=== PATIENT | female | born 1960 | race Caucasian/White ===

== ENCOUNTER 2016-11-19 18:33 | Emergency (ER) | payer BC ==
[2016-11-19 18:38] VITALS: TEMP 97.9
--- NOTE | 2016-11-19 18:47 | CPEKG ---
Heart Rate: 162 RR Interval: 370 QRSD Interval: 80 QT Interval: 288 QTC Interval: 473 QRS [place]: 104 T Wave [place]: 17 EKG Severity - ABNORMAL ECG - EKG Impression: ATRIAL FIBRILLATION WITH RAPID V-RATE EKG Impression: PROBABLE ANTEROSEPTAL INFARCT, OLD Electronically Signed By: Gonzalo Reynoso 19-Nov-2016 20:36:39
[2016-11-19] MEDS ORDERED: PROPOFOL 200 MG/20 ML VIAL ONE ×2 (18:58→20:31)
--- NOTE | 2016-11-19 19:13 | EDPHY ---
H & P Time Seen by Provider: 11/19/16 19:11 HPI/ROS: Chief complaint. Atrial fibrillation HPI. 56-year-old female with long history of paroxysmal atrial fibrillation presents with atrial fibrillation that began at 12:30 p.m. this afternoon. She feels somewhat tired and weak. No chest discomfort or shortness of breath. Nothing unusual about this. 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 ROS Constitutional. Weakness Eyes. no problems with vision ENT. no sore throat, no nasal drainage Cardiovascular. no chest pain. Rapid heart rate Respiratory. no shortness of breath, no cough Abdominal. no abdominal pain, no nausea/vomiting, no diarrhea . no problems urinating MS. no calf pain/swelling, no neck/back pain, no joint pain Skin. no rash Lymph. no swollen glands Neuro. no headache, no dizziness, no difficulty walking or with speech Past Medical/Surgical History: Atrial fibrillation, cardioversion, ablation, orthopedic surgeries Social History: , nonsmoker, no alcohol Smoking Status: Never smoked Physical Exam: General Appearance: Alert well-developed female mild distress vital signs show heart rate 136 blood pressure 172/104 Eyes: Pupils equal and round no pallor or injection. ENT, Mouth: Mucous membranes are moist. Respiratory: There are no retractions, lungs are clear to auscultation. Cardiovascular: Irregularly irregular rate and rhythm Gastrointestinal: Abdomen is soft and nontender, no masses, bowel sounds normal. Neurological: Awake and alert, sensory and motor exams grossly normal. Skin: Warm and dry, no rashes. Musculoskeletal: Neck is supple nontender. Extremities symmetrical, full range of motion. Psychiatric: Patient is oriented X 3, there is no agitation. Constitutional: Initial Vital Signs Temperature (C) 36.6 C 11/19/16 18:34 Heart Rate 136 H 11/19/16 18:34 Respiratory Rate 18 11/19/16 18:34 Blood Pressure 172/104 H 11/19/16 18:34 O2 Sat (%) 94 11/19/16 18:34 O2 Delivery Mode Room Air Allergies/Adverse Reactions: ketamine Allergy (Verified 07/06/15 16:01) Home Medications: Medication Instructions Recorded Cholecalciferol (Vitamin D3) 4,000 unit PO BID 08/07/13 [Vitamin D3] ESOMEPRAZOLE MAG TRIHYDRATE 40 mg PO DAILY 08/07/13 [NEXIUM] Furosemide [Lasix 20 MG (RX)] 20 mg PO DAILY PRN 08/07/13 Magnesium Oxide [Magnesium Oxide 500 mg PO DAILY@18 08/07/13 500 mg] Multivitamins [Tab-A-[place]] 1 each PO DAILY 08/07/13 Niacin [Niacin 500 mg (OTC)] 500 mg PO HS 08/07/13 [place]-3 Fatty Acids/Fish Oil [Fish 3 each PO BID 08/07/13 Oil 1,000 mg Capsule] Thyroid [[place] Thyroid] 60 mg PO BID 08/07/13 Ubidecarenone [Co Q-10] 50 mg PO DAILY 08/07/13 metFORMIN HCL [Glucophage] 850 mg PO BIDMEAL 08/07/13 Herbals/Supplements -Info Only 1 each PO AD 08/14/13 Progesterone 03/10/14 Cartia Xt 07/06/15 Fluticasone Propionate [Flovent 250 mcg IH BID #1 disk.w.dev 07/06/15 Diskus] Eliquis 11/19/16 Medical Decision Making - Diagnostics EKG Interpretation: EKG interpreted by me shows atrial fibrillation with normal axis. QRS is normal there is diffuse mild T-wave flattening. Ventricular response is 162 Post conversion EKG interpreted by me shows normal sinus rhythm with a rate of 95 Procedures: IV normal saline, monitor ED Course/Re-evaluation: Procedure: Conscious sedation. Indication: Cardioversion I was asked by Dr. Su to perform procedural sedation The patient is an appropriate candidate to tolerate procedural sedation. The patient's vital signs and mental status are appropriate. The risks, benefits and alternatives of the sedation were discussed with the patient. The patient is ASA classification 2 . The patient's Mallampati airway score was 1 and the patient did meet the 3-3-2 airway measurements. A time out was completed. The patient was sedated with propofol 100 mg IV. The patient was monitored with continuous pulse oximetry, merchant police and end tidal CO2. There were no complications and no significant hypoxemia. I performed the sedation The total time I spent at the bedside during the procedural sedation was 20 minutes. The patient was examined after the procedural sedation and has returned to their pre-sedation baseline with normal vital signs and a normal examination. Patient recovers well without symptoms. She is stable and in sinus rhythm Patient and I discussed treatment plan including criteria for return importance of follow-up and further evaluation. They expressed understanding and agreement Differential Diagnosis: I considered acute coronary syndrome, electrolyte abnormalities. The patient has recurrent atrial fibrillation - Data Points Laboratory Results: Laboratory Results 11/19/16 18:50 11/19/16 18:50 11/19/16 18:50 WBC 9.57 H 10^3/uL (3.80-9.50) RBC 5.10 10^6/uL (4.18-5.33) Hgb 15.5 g/dL (12.6-16.3) Hct 45.0 % (38.0-47.0) MCV 88.2 fL (81.5-99.8) MCH 30.4 pg (27.9-34.1) MCHC 34.4 g/dL (32.4-36.7) RDW 12.8 % (11.5-15.2) Plt Count 345 10^3/uL (150-400) MPV 10.4 fL (8.7-11.7) Neut % (Auto) 44.0 % (39.3-74.2) Lymph % (Auto) 46.9 H % (15.0-45.0) [place] % (Auto) 5.9 % (4.5-13.0) Eos % (Auto) 2.7 % (0.6-7.6) Baso % (Auto) 0.4 % (0.3-1.7) Nucleat RBC Rel Count 0.0 % (0.0-0.2) Absolute Neuts (auto) 4.21 10^3/uL (1.70-6.50) Absolute Lymphs (auto) 4.49 H 10^3/uL (1.00-3.00) Absolute Monos (auto) 0.56 10^3/uL (0.30-0.80) Absolute Eos (auto) 0.26 10^3/uL (0.03-0.40) Absolute Basos (auto) 0.04 10^3/uL (0.02-0.10) Absolute Nucleated RBC 0.00 10^3/uL (0-0.01) Immature Gran % 0.1 % (0.0-1.1) Immature Gran # 0.01 10^3/uL (0.00-0.10) PT 12.1 SEC (12.0-15.0) INR 0.91 (0.83-1.16) APTT 28.2 SEC (23.0-38.0) Sodium 143 mEq/L (134-144) Potassium 4.2 mEq/L (3.5-5.2) Chloride 104 mEq/L (97-110) Carbon Dioxide 27 mEq/l (22-31) Anion Gap 12 mEq/L (8-16) BUN 13 mg/dL (7-23) Creatinine 0.6 mg/dL (0.6-1.0) Estimated GFR > 60 Glucose 100 mg/dL (70-100) Calcium 10.1 mg/dL (8.5-10.4) Troponin I < 0.012 ng/mL (0-0.034) Medications Given: Discontinued Medications Sodium Chloride (Ns) 1,000 mls @ 0 mls/hr IV ONCE ONE PRN Reason: Wide Open Stop: 11/19/16 19:23 Last Admin: 11/19/16 19:36 Dose: 1,000 mls Departure - Departure Disposition: Home, Routine, Self-Care Clinical Impression: Atrial fibrillation Qualifiers: Atrial fibrillation type: paroxysmal Qualifier Code: (I48.0) Paroxysmal atrial fibrillation Condition: Good Instructions: Atrial Fibrillation (ED) Additional Instructions: Continue regular medications. Return for worsening symptoms. Call Dr. Clark for further evaluation on Tuesday Referrals: Cristina So [Primary Care Provider] - As per Instructions Jv Clark MD [Medical Doctor] - 2-3 days without fail
[2016-11-19 19:20] VITALS: RESP 16
[2016-11-19 19:21] LABS: % IMMATURE GRANULYOCYTES 0.1 % (0.0-1.1); ABSOLUTE IMMATURE GRANULOCYTES 0.01 10^3/uL (0.00-0.10); ADD DIFF? NO; ADD MORPH? NO; ADD SCAN? NO; ATYPICAL LYMPHOCYTE FLAG 0 (0-99); FRAGMENT RBC FLAG 20 (0-99); HEMOGLOBIN 15.5 g/dL (12.6-16.3); LEFT SHIFT FLG 0 (0-99); LIPEMIA HEMOLYSIS FLAG 90 (0-99); MEAN CELL HEMOGLOBIN 30.4 pg (27.9-34.1); MEAN CELL HEMOGLOBIN CONCENTR. 34.4 g/dL (32.4-36.7); MEAN CELL VOLUME 88.2 fL (81.5-99.8); MEAN PLATELET VOLUME 10.4 fL (8.7-11.7); PLATELET CLUMPS FLAG 20 (0-99); PLATELET COUNT 345 10^3/uL (150-400); RED CELL DISTRIBUTION WIDTH 12.8 % (11.5-15.2)
[2016-11-19] MEDS ORDERED: NS 1,000 ML IV ONE (19:22)
[2016-11-19 19:27] LABS: INR 0.91 (0.83-1.16); PROTIME(PATIENT) 12.1 SEC (12.0-15.0)
[2016-11-19 19:28] LABS: APTT 28.2 SEC (23.0-38.0)
[2016-11-19 19:31] LABS: ANION GAP 12 mEq/L (8-16); CALCIUM 10.1 mg/dL (8.5-10.4); CARBON DIOXIDE 27 mEq/l (22-31); CHLORIDE 104 mEq/L (97-110); CREATININE 0.6 mg/dL (0.6-1.0); GLOMERULAR FILTRATION RATE > 60; GLUCOSE 100 mg/dL (70-100); POTASSIUM 4.2 mEq/L (3.5-5.2); SODIUM 143 mEq/L (134-144)
[2016-11-19 19:41] LABS: TROPONIN I < 0.012 ng/mL (0-0.034)
[2016-11-19] MEDS ORDERED: PROPOFOL 200 MG/20 ML VIAL IVP ONE (20:42)
--- NOTE | 2016-11-19 21:01 | CPEKG ---
Heart Rate: 95 RR Interval: 632 P-R Interval: 160 QRSD Interval: 90 QT Interval: 364 QTC Interval: 458 P [place]: 44 QRS [place]: 26 T Wave [place]: 43 EKG Severity - BORDERLINE ECG - EKG Impression: SINUS RHYTHM EKG Impression: BORDERLINE T ABNORMALITIES, ANT-LAT LEADS Electronically Signed By: Gonzalo Reynoso 19-Nov-2016 21:29:17
[2016-11-19 21:39] VITALS: BP 117/85; PULSE 92; O2SAT 96
--- NOTE | 2016-11-20 05:24 | CPR ---
[f rep st] NONINVASIVE CARDIAC PROCEDURE REPORT PROCEDURE PERFORMED: Cardioversion. INDICATION FOR PROCEDURE: The patient is a 56-year-old female, with a long history of paroxysmal atr ial fibrillation. She has undergone 2 prior radiofrequency ablation procedures. However, she contin ues to experience episodes of paroxysmal atrial fibrillation occurring every several months. She has had multiple cardioversions in the past. She typically never makes it through a full calendar year without a recurrent episode of atrial fibrillation. When she does develop atrial fibrillation she te nds to get "stuck" in it and requires a cardioversion to restore normal sinus rhythm. She is followe d in the office by Dr. Clark. She developed recurrent atrial fibrillation between noon and 1 p.m. tomaral y. She contacted our office and was instructed to proceed to the emergency room to undergo cardiover sera. DESCRIPTION OF PROCEDURE: The patient received intravenous propofol for sedation, supervised by Dr. Gonzalo Reynoso from the emergency room. A single, synchronized 100 joule shock was successful in ping ring normal sinus rhythm. CONCLUSIONS: Successful cardioversion from atrial fibrillation to normal sinus rhythm. PLAN: The patient will be discharged shortly from the emergency room. I will send notification to t [place] office of [facility] to contact the patient for followup with Dr. Clark, in the near future. /[id number]/MODL
== END 2016-11-19 21:38 | disposition home or self-care (01) ==
DX: I48.0 Paroxysmal atrial fibrillation (principal)
CPT/HCPCS: J2704

== ENCOUNTER 2017-01-21 10:47 | Day surgery (SDC) | payer BC ==
[2017-01-21] MEDS ORDERED: NS 500 ML IV ONE (11:20)
[2017-01-21] MEDS ORDERED: PROPOFOL 200 MG/20 ML VIAL IVP ONE (11:20)
[2017-01-21] MEDS ORDERED: fentaNYL 100 MCG/2 ML INJ IVP ONE (11:20)
[2017-01-21] MEDS ORDERED: ETOMIDATE 20 MG/10 ML VIAL IVP ONE (11:20)
[2017-01-21] MEDS ORDERED: MIDAZOLAM 2 MG/2 ML VIAL IVP ONE (11:20)
[2017-01-21 11:49] LABS: INR 1.01 (0.83-1.16); PROTIME(PATIENT) 13.2 SEC (12.0-15.0)
[2017-01-21 11:50] LABS: APTT 28.8 SEC (23.0-38.0)
[2017-01-21 12:54] LABS: ANION GAP 14 mEq/L (8-16); CALCIUM 9.9 mg/dL (8.5-10.4); CARBON DIOXIDE 24 mEq/l (22-31); CHLORIDE 107 mEq/L (97-110); CREATININE 0.6 mg/dL (0.6-1.0); GLOMERULAR FILTRATION RATE > 60; GLUCOSE 104 mg/dL (70-100); MAGNESIUM 2.2 mg/dL (1.6-2.3); SODIUM 145 mEq/L (134-144)
--- NOTE | 2017-01-21 13:33 | EPPROC ---
Electrophysiology Procedure Note: Procedure: CV Indication: Symptomatic AF Procedure: Pt sedated by anesthesia staff. 200J of DCCV given, after the first one the pt returned in AF. Patch position changed. CV repeated. This time the pt converted to SR Conclusion: Successful CV Patient Problems: Problems Problem Status Onset Atrial fibrillation Acute Primary osteoarthritis of one knee Acute
== END 2017-01-21 13:32 | disposition home or self-care (01) ==
LOC: FCATH 10:47
PROVIDERS: ATTEND Internal Medicine Cardiovascular Disease
PROC: 5A2204Z Restoration of Cardiac Rhythm, Single (ICD-10-PCS; principal; 2017-01-21)
DX: I48.91 Unspecified atrial fibrillation (principal); Z79.01 Long term (current) use of anticoagulants
CPT/HCPCS: J2704

== ENCOUNTER → 2017-03-22 | Outpatient (CLI) | payer BC | LOC: FIMAGING 14:31 | DX: Z12.31 Encounter for screening mammogram for malignant neoplasm of breast (principal) | CPT/HCPCS: G0202 ==

== ENCOUNTER 2017-06-03 10:51 | Day surgery (SDC) | payer BC ==
[2017-06-03] MEDS ORDERED: fentaNYL 100 MCG/2 ML INJ IVP ONE (10:56)
[2017-06-03] MEDS ORDERED: MIDAZOLAM 2 MG/2 ML VIAL IVP ONE (10:56)
[2017-06-03] MEDS ORDERED: BENZOCAINE UNIT DOSE SPRAY HURRICAINE MM ONE (10:56)
[2017-06-03] MEDS ORDERED: NS 500 ML IV ONE (10:56)
[2017-06-03] MEDS ORDERED: PROPOFOL 200 MG/20 ML VIAL IVP ONE (10:56)
--- NOTE | 2017-06-03 11:17 | CPEKG ---
Heart Rate: 162 RR Interval: 370 QRSD Interval: 80 QT Interval: 292 QTC Interval: 480 QRS [place]: 93 T Wave [place]: 17 EKG Severity - ABNORMAL ECG - EKG Impression: ATRIAL FIBRILLATION WITH RAPID V-RATE EKG Impression: PROBABLE ANTEROSEPTAL INFARCT, OLD EKG Impression: BORDERLINE T ABNORMALITIES, ANTERIOR LEADS EKG Impression: ATRIAL FIB IS NEW IN COMPARISON TO PRIOR Electronically Signed By: Maninder Garcia 03-Jun-2017 14:11:23
[2017-06-03] MEDS ORDERED: ATROPINE SULFATE 1 MG/10 ML SYR ONE (11:30)
[2017-06-03 11:44] LABS: INR 1.01 (0.83-1.16); PROTIME(PATIENT) 13.2 SEC (12.0-15.0)
[2017-06-03 11:45] LABS: APTT 27.8 SEC (23.0-38.0)
[2017-06-03 12:01] LABS: ANION GAP 13 mEq/L (8-16); CARBON DIOXIDE 23 mEq/l (22-31); CHLORIDE 109 mEq/L (97-110); CREATININE 0.7 mg/dL (0.6-1.0); GLOMERULAR FILTRATION RATE > 60; GLUCOSE 103 mg/dL (70-100); MAGNESIUM 2.2 mg/dL (1.6-2.3); SODIUM 145 mEq/L (134-144)
--- NOTE | 2017-06-03 12:43 | CPEKG ---
Heart Rate: 95 RR Interval: 632 P-R Interval: 160 QRSD Interval: 88 QT Interval: 360 QTC Interval: 453 P [place]: 41 QRS [place]: -38 T Wave [place]: 29 EKG Severity - BORDERLINE ECG - EKG Impression: SINUS RHYTHM EKG Impression: LEFT AXIS DEVIATION EKG Impression: BORDERLINE T ABNORMALITIES, ANTERIOR LEADS EKG Impression: SINUS RHYTHM HAS REPLACED AFIB FROM PRIOR ECG Electronically Signed By: Maninder Garcia 03-Jun-2017 14:11:56
--- NOTE | 2017-06-03 16:54 | EPPROC ---
Electrophysiology Procedure Note: Procedure: DCCV Indication: AF Procedure: Pt sedated by anesthesiologist. Once sedated, pt underwent synchronized DCCV at 200J. Pt converted to SR. Conclusion: Successful CV Patient Problems: Problems Problem Status Onset Atrial fibrillation Acute Primary osteoarthritis of one knee Acute
== END 2017-06-03 13:51 | disposition home or self-care (01) ==
LOC: FCATH 10:51
PROVIDERS: ATTEND Internal Medicine Cardiovascular Disease
PROC: 5A2204Z Restoration of Cardiac Rhythm, Single (ICD-10-PCS; principal; 2017-06-03)
DX: I48.91 Unspecified atrial fibrillation (principal)
CPT/HCPCS: J0461; J2704

== ENCOUNTER 2017-06-24 10:29 | Day surgery (SDC) | payer BC ==
[2017-06-24] MEDS ORDERED: MIDAZOLAM 2 MG/2 ML VIAL IVP ONE (10:33)
[2017-06-24] MEDS ORDERED: PROPOFOL 200 MG/20 ML VIAL IVP ONE (10:33)
[2017-06-24] MEDS ORDERED: NS 500 ML IV ONE (10:33)
[2017-06-24] MEDS ORDERED: fentaNYL 100 MCG/2 ML INJ IVP ONE (10:33)
--- NOTE | 2017-06-24 10:45 | CPEKG ---
Heart Rate: 157 RR Interval: 382 QRSD Interval: 82 QT Interval: 280 QTC Interval: 453 QRS [place]: 117 T Wave [place]: 16 EKG Severity - ABNORMAL ECG - EKG Impression: ATRIAL FIBRILLATION WITH RAPID V-RATE Electronically Signed By: Asif Grijalva 27-Jun-2017 05:28:37
[2017-06-24 11:08] LABS: INR 1.04 (0.83-1.16); PROTIME(PATIENT) 13.5 SEC (12.0-15.0)
[2017-06-24 11:09] LABS: APTT 28.8 SEC (23.0-38.0)
[2017-06-24 11:18] LABS: ANION GAP 16 mEq/L (8-16); CARBON DIOXIDE 24 mEq/l (22-31); CHLORIDE 104 mEq/L (97-110); CREATININE 0.7 mg/dL (0.6-1.0); GLOMERULAR FILTRATION RATE > 60; GLUCOSE 113 mg/dL (70-100); MAGNESIUM 2.1 mg/dL (1.6-2.3); SODIUM 144 mEq/L (134-144)
[2017-06-24] MEDS ORDERED: ATROPINE SULFATE 1 MG/10 ML SYR ONE (12:00)
[2017-06-24] MEDS ORDERED: PROPOFOL 200 MG/20 ML VIAL ONE (12:02)
--- NOTE | 2017-06-24 12:27 | CPEKG ---
Heart Rate: 89 RR Interval: 674 P-R Interval: 160 QRSD Interval: 96 QT Interval: 360 QTC Interval: 439 P [place]: 45 QRS [place]: -21 T Wave [place]: 13 EKG Severity - BORDERLINE ECG - EKG Impression: SINUS RHYTHM EKG Impression: LEFT AXIS DEVIATION EKG Impression: NON-SPECIFIC ST DEPRESSION ANTERIOR-LATERALLY Electronically Signed By: Asif Grijalva 27-Jun-2017 05:28:19
--- NOTE | 2017-06-24 18:13 | EPPROC ---
Electrophysiology Procedure Note: Procedure: DCCV Indication: Symptomatic AF Procedure: Pt sedated by anesthesiology staff. Once sedated, pt underwent 200J of synchronized DCCV. Successful conversion to SR. Conclusion: Successful CV Patient Problems: Problems Problem Status Onset Atrial fibrillation Acute Primary osteoarthritis of one knee Acute
== END 2017-06-24 13:03 | disposition home or self-care (01) ==
LOC: FCATH 10:29
PROVIDERS: ATTEND Internal Medicine Cardiovascular Disease
PROC: 5A2204Z Restoration of Cardiac Rhythm, Single (ICD-10-PCS; principal; 2017-06-24)
DX: I48.91 Unspecified atrial fibrillation (principal); E03.9 Hypothyroidism, unspecified; E11.9 Type 2 diabetes mellitus without complications
CPT/HCPCS: J0461; J2704

== ENCOUNTER → 2018-03-29 | Outpatient (CLI) | payer BC | LOC: CIMAGING 07:06 | PROVIDERS: ATTEND Obstetrics & Gynecology Gynecology | DX: Z12.31 Encounter for screening mammogram for malignant neoplasm of breast (principal) ==

== ENCOUNTER 2018-05-03 09:31 | Day surgery (SDC) | payer BC ==
[2018-05-03] MEDS ORDERED: NS 500 ML IV ONE (09:34)
[2018-05-03] MEDS ORDERED: ATROPINE SULFATE 1 MG/10 ML SYR IVP ONE (09:34)
[2018-05-03] MEDS ORDERED: fentaNYL 100 MCG/2 ML INJ IVP ONE (09:34)
[2018-05-03] MEDS ORDERED: MIDAZOLAM 2 MG/2 ML VIAL IVP ONE (09:34)
--- NOTE | 2018-05-03 09:51 | CPEKG ---
Heart Rate: 158 RR Interval: 380 QRSD Interval: 82 QT Interval: 288 QTC Interval: 467 QRS [place]: 127 T Wave [place]: 17 EKG Severity - ABNORMAL ECG - EKG Impression: ATRIAL FIBRILLATION EKG Impression: LEFT POSTERIOR FASCICULAR BLOCK EKG Impression: PROBABLE ANTEROSEPTAL INFARCT, OLD EKG Impression: REPOLARIZATION ABNORMALITY, PROB RATE RELATED Electronically Signed By: Jv Clark 03-May-2018 11:00:56
[2018-05-03 10:17] LABS: INR 1.05 (0.83-1.16); PROTIME(PATIENT) 13.9 SEC (12.0-15.0)
--- NOTE | 2018-05-03 10:56 | PDGENHP ---
History & Physical Chief Complaint: symptomatic AFIB Relevant Physical Exam: s1s2 irreg. cta. ao3 Cardiorespiratory Assessment: Symptomatic AFIB. Plan cardioversion
[2018-05-03] MEDS ORDERED: PROPOFOL 200 MG/20 ML VIAL ONE (11:07)
--- NOTE | 2018-05-03 11:29 | CPEKG ---
Heart Rate: 82 RR Interval: 732 P-R Interval: 164 QRSD Interval: 92 QT Interval: 380 QTC Interval: 444 P [place]: 11 QRS [place]: 3 T Wave [place]: 25 EKG Severity - ABNORMAL ECG - EKG Impression: SINUS RHYTHM EKG Impression: PROBABLE ANTEROSEPTAL INFARCT, AGE INDETERM Electronically Signed By: Jv Clark 03-May-2018 16:35:30
[2018-05-03] MEDS ORDERED: NALOXONE HCL 0.4 MG/ML INJ IVP PRN (11:40)
--- NOTE | 2018-05-03 11:40 | PDANEPAE ---
ANE Past Medical History - Pulmonary History Hx Oxygen in Use at Home: No Hx Sleep Apnea: No - Endocrine History Hx Diabetes: No ANE Review of Systems Review of Systems: ANE Patient History - Allergies Allergies/Adverse Reactions: ketamine Allergy (Verified 07/06/15 16:01) - Home Medications Home Medications: Cholecalciferol (Vitamin D3) [Vitamin D3] 4,000 unit PO BID 08/07/13 [Last Taken 05/03/18] Furosemide [Lasix 20 MG (RX)] 20 mg PO DAILY PRN 08/07/13 [Last Taken 05/02/18] Multivitamins [Tab-A-[place]] 1 each PO DAILY 08/07/13 [Last Taken 05/02/18] Niacin [Niacin 500 mg (OTC)] 500 mg PO HS 08/07/13 [Last Taken 05/02/18] [place]-3 Fatty Acids/Fish Oil [Fish Oil 1,000 mg Capsule] 3 each PO BID 08/07/13 [Last Taken 08/28/13] Thyroid [[place] Thyroid] 60 mg PO BID 08/07/13 [Last Taken 05/02/18] Ubidecarenone [Co Q-10] 50 mg PO DAILY 08/07/13 [Last Taken 05/02/18] metFORMIN HCL [Glucophage] 1,000 mg PO BIDMEAL 08/07/13 [Last Taken 05/02/18] Progesterone 03/10/14 [Last Taken 05/02/18] Eliquis 5 mg PO BID 11/19/16 [Last Taken 05/03/18] Diltiazem HCl [Cartia XT 180mg] 05/03/18 [Last Taken 05/03/18] Rythmol Sr 225mg (*) 05/03/18 [Last Taken 05/03/18] - Smoking Hx Smoking Status: Never smoked ANE Labs/Vital Signs - Labs Result Diagrams: 05/03/18 09:48 - Vital Signs Height: 177.8 cm Weight: 86.636 kg ANE Physical Exam - Airway Neck exam: FROM Mallampati Score: Class 1 Mouth exam: normal dental/mouth exam - Pulmonary Pulmonary: no respiratory distress, no rales or rhonchi, clear to auscultation - Cardiovascular Cardiovascular: irregularly irregular - ASA Status ASA Status: III ANE Anesthesia Plan Anesthesia Plan: GA with mask
--- NOTE | 2018-05-03 11:41 | POSTANESTH ---
Post Anesthetic Evaluation Cardiovascular Status: Normal, Stable Respiratory Status: Normal, Stable, Similar to Pre-op Cond. Level of Consciousness/Mental Status: Can Participate in Eval Pain Control: Adequate, Prn Tx Ordered Nausea/Vomiting Control: Adequate, Prn Tx Ordered Complications Possibly Related to Anesthesia: None Noted
--- NOTE | 2018-05-03 20:15 | PDCARD ---
Cardioversion Procedure Procedure: electrical cardioversion Indications: atrial fibrillation Consent: signed and in chart Anticoagulation: eliquis Procedural Details: Pads were placed in anterior-posterior position. Synchronized cardioversion attempt #1: 200J (Sinus rhythm post CV. Patient asked to continue Eliquis chcf.) Patient Problems: Problems Problem Status Onset Primary osteoarthritis of one knee Acute Atrial fibrillation Acute
== END 2018-05-03 17:19 | disposition home or self-care (01) ==
LOC: FCATH 09:31
PROVIDERS: ATTEND Internal Medicine Cardiovascular Disease
PROC: 5A2204Z Restoration of Cardiac Rhythm, Single (ICD-10-PCS; principal; 2018-05-03)
DX: I48.91 Unspecified atrial fibrillation (principal); Z79.01 Long term (current) use of anticoagulants
CPT/HCPCS: J0461; J2704

== ENCOUNTER 2019-04-03 10:44 | Day surgery (SDC) | payer BC ==
[2019-04-03] MEDS ORDERED: ATROPINE SULFATE 1 MG/10 ML SYR IVP ONE (10:45)
[2019-04-03] MEDS ORDERED: NS 500 ML IV ONE (10:45)
[2019-04-03] MEDS ORDERED: BENZOCAINE UNIT DOSE SPRAY HURRICAINE MM ONE (10:45)
[2019-04-03] MEDS ORDERED: MIDAZOLAM 2 MG/2 ML VIAL IVP ONE (10:45)
[2019-04-03] MEDS ORDERED: fentaNYL 100 MCG/2 ML INJ IVP ONE (10:45)
[2019-04-03 11:31] LABS: INR 1.09 (0.83-1.16); PROTIME(PATIENT) 13.7 SEC (12.0-15.0)
--- NOTE | 2019-04-03 12:45 | PDGENHP ---
History & Physical Chief Complaint: Atrial fibrillation History of Present Illness: Symptomatic atrial fibrillation Relevant Physical Exam: A&Ox4, no apparent distress, irregularly irregular, S1, S2 Cardiorespiratory Assessment: Proceed with ROSANA-guided DCCV as planned for today (1 recent missed dose of Eliquis).
--- NOTE | 2019-04-03 12:48 | PDANEPAE ---
ANE History of Present Illness juan/cv ANE Past Medical History - Cardiovascular History Hx Hypertension: Yes Hx Arrhythmias: Yes Hx Chest Pain: No Hx Coronary Artery / Peripheral Vascular Disease: No Hx CHF / Valvular Disease: No Hx Palpitations: No - Pulmonary History Hx COPD: No Hx Asthma/Reactive Airway Disease: No Hx Recent Upper Respiratory Infection: No Hx Oxygen in Use at Home: No Hx Sleep Apnea: No - Neurologic History Hx Cerebrovascular Accident: No Hx Seizures: No Hx Dementia: No - Endocrine History Hx Diabetes: No Hypothyroid: No Hyperthyroid: No Obesity: mild - Renal History Hx Renal Disorders: No - Liver History Hx Hepatic Disorders: No - GI History GERD: mild GERD Comment: controlled with nexium ANE Review of Systems Review of Systems: - Exercise capacity Exercise capacity: >=4 METS ANE Patient History - Allergies Allergies/Adverse Reactions: ketamine Allergy (Verified 07/06/15 16:01) - Home Medications Home medications: home medication list seen and reviewed Home Medications: Cholecalciferol (Vitamin D3) [Vitamin D3] 4,000 unit PO BID 08/07/13 [Last Taken 05/03/18] Furosemide [Lasix 20 MG (RX)] 20 mg PO DAILY PRN 08/07/13 [Last Taken 05/02/18] Multivitamins [Tab-A-[place]] 1 each PO DAILY 08/07/13 [Last Taken 05/02/18] Niacin [Niacin 500 mg (OTC)] 500 mg PO HS 08/07/13 [Last Taken 05/02/18] [place]-3 Fatty Acids/Fish Oil [Fish Oil 1,000 mg Capsule] 3 each PO BID 08/07/13 [Last Taken 08/28/13] Thyroid [[place] Thyroid] 60 mg PO BID 08/07/13 [Last Taken 05/02/18] Ubidecarenone [Co Q-10] 50 mg PO DAILY 08/07/13 [Last Taken 05/02/18] metFORMIN HCL [Glucophage] 1,000 mg PO BIDMEAL 08/07/13 [Last Taken 05/02/18] Progesterone 03/10/14 [Last Taken 05/02/18] Eliquis 5 mg PO BID 11/19/16 [Last Taken 05/03/18] Diltiazem HCl [Cartia XT 180mg] 05/03/18 [Last Taken 06/20/18] Rythmol Sr 225mg (*) 05/03/18 [Last Taken 05/03/18] - NPO status NPO Status: no food or drink >8 hours - Anes Hx Anes Hx: no prior problems - Smoking Hx Smoking Status: Never smoked ANE Labs/Vital Signs - Labs Result Diagrams: 04/03/19 11:10 ANE Physical Exam - Airway Mallampati Score: Class 2 Mouth exam: normal dental/mouth exam - Pulmonary Pulmonary: no respiratory distress - Cardiovascular Cardiovascular: regular rate and rhythym - ASA Status ASA Status: II ANE Anesthesia Plan Anesthesia Plan: GA with mask
[2019-04-03] MEDS ORDERED: PROPOFOL 200 MG/20 ML VIAL ONE (12:49)
[2019-04-03] MEDS ORDERED: LIDOCAINE 2% 2 ML INJ ONE (12:49)
--- NOTE | 2019-04-03 13:00 | PDTEE1 ---
ROSANA Cardioversion Procedure Procedure: electrical cardioversion, transesophageal echo Indications: atrial fibrillation Consent: signed and in chart Anticoagulation: eliquis Procedural Details: Pads were placed in anterior-posterior position. ROSANA probe was advanced and standard images obtained. There is no evidence of left atrial or left atrial appendage thrombus. Synchronized cardioversion attempt #1: 200J Results: normal sinus rhythm Conclusions: successful ROSANA cardioversion Patient Problems: Problems Problem Status Onset Primary osteoarthritis of one knee Acute Atrial fibrillation Acute
--- NOTE | 2019-04-03 13:08 | POSTANESTH ---
Post Anesthetic Evaluation Cardiovascular Status: Normal, Stable Respiratory Status: Normal, Stable Level of Consciousness/Mental Status: Can Participate in Eval Pain Control: Adequate, Prn Tx Ordered Nausea/Vomiting Control: Adequate, Prn Tx Ordered Complications Possibly Related to Anesthesia: None Noted
--- NOTE | 2019-04-07 11:26 | ECHO ---
[email or web address] [address] [address] Main: [phone] Echocardiography Examination Transesophageal Name: NEGRITA RAMESH MR#: [id number] Study Date: 04/03/2019 Study Time: 12:33 PM Date of : 1960 Age: 59 year(s) Height: ( ) Weight: ( ) BSA: Gender: Female Examination: ROSANA Contrast: Image Quality: Rhythm: Heart Rate: BP: / Indication: Pre Cardioversion Procedure Staff Referring Physician: Diamond Picker: Gonzalez Byrnes RDCS Reading Physician: Jv Clark MD Requesting Provider: Ordering Physician: Jv Clark MD Indication: Pre Cardioversion Findings Left Ventricle: The EF is visually estimated to be 60 %. Left Atrium Appendage: Good color flow doppler in the left atrial appendage. No thrombus is identified. Right Atrium: The right atrium is normal in size. Mitral Valve: Mitral valve appears structurally normal. Moderate mitral regurgitation. Aortic Valve: Mild aortic regurgitation is present. The aortic valve is trileaflet. Tricuspid Valve: Mild to moderate tricuspid regurgitation. Pulmonic Valve: Pulmonic leaflets are normal in appearance and function. No pulmonic valve regurgitation is evident. Aorta: The aorta is normal. Pericardium: No pericardial effusion. Exam Details Procedure Ordered: ROSANA Patient: NEGRITA RAMESH Study Date: 04/03/2019 Page 1 of 2 12:33 PM (No Signature Object) Patient: NEGRITA RAMESH Study Date: 04/03/2019 Page 2 of 2 12:33 PM [id number]
== END 2019-04-03 14:15 | disposition home or self-care (01) ==
LOC: FCATH 10:44
PROVIDERS: ATTEND Internal Medicine Cardiovascular Disease
DX: I48.91 Unspecified atrial fibrillation (principal); I10 Essential (primary) hypertension; K21.9 Gastro-esophageal reflux disease without esophagitis; Z79.01 Long term (current) use of anticoagulants
CPT/HCPCS: J2704